=== PATIENT | male | born 1960 | race Caucasian/White ===

== ENCOUNTER 2023-04-05 12:21 | Emergency (ER) | payer OTHER, SELFPAY ==
[2023-04-05 13:26] VITALS: BP 136/81; PULSE 64; RESP 18; TEMP 36.9; O2SAT 98
--- NOTE | 2023-04-05 14:05 | ED.GENADULT ---
HPI - General Adult General Chief complaint: Wound/Laceration Stated complaint: skin tear rt arm Time Seen by Provider: 04/05/23 14:05 Source: patient Mode of arrival: ambulatory Limitations: no limitations History of Present Illness HPI narrative: 62-year-old male patient presents to the [facility] with complaints of skin tear to the right arm. Patient states that he was moving a couch last night and he got scratch to the right arm. Patient states that he cleaned the wound with soap Hobbs put antibiotic ointment on and kept it covered with a Band-Aid. Patient states he is here today specifically to get a tetanus shot as he is unaware of when his last tetanus shot was. Patient states he is prediabetic but not treated at this time. Denies any numbness or tingling to the arm. Denies any concerns for infection at this time. Related Data Allergies Allergy/AdvReac Type Severity Reaction Status Date / Time No Known Allergies Allergy Verified 04/05/23 14:03 Review of Systems Review of Systems: CONSTITUTIONAL: Denies fever, chills, or sweats. EYES: Denies visual changes, redness, or discharge. ENT: Denies rhinorrhea, congestion, sore throat, or otalgia. CARDIOVASCULAR: Denies chest pain, palpitations, or edema. RESPIRATORY: Denies cough or dyspnea. GASTROINTESTINAL: Denies abdominal pain, nausea, vomiting, or diarrhea. GENITOURINARY: Denies dysuria or hematuria. SKIN: Denies rash or itching. Positive skin tear right forearm MUSCULOSKELETAL: Denies back pain, joint pain, or myalgia. NEUROLOGIC: Denies headache, numbness, or weakness. PSYCHIATRIC: Denies anxiety or depression. [facility] Past Medical History Medical History (Updated 04/05/23 @ 14:13 by DYLAN Arceo) Pre-diabetes Comments At the time of my signature I agree with nursing past medical history, surgical, social, and family history. There is no relevant family history pertinent to the presenting complaint. Exam Narrative: GENERAL: Well-appearing, well-nourished, and in no acute distress. HEAD: Normocephalic, atraumatic. EYES: PERRLA and EOMI. ENT: Nares clear, no rhinorrhea or epistaxis. Mucous membranes moist. NECK: Supple. No lymphadenopathy CHEST: Clear to auscultation. No respiratory distress. HEART: Regular rate and rhythm. No murmur heard. Normal peripheral pulses. ABDOMEN: Soft, nontender, nondistended, normal active bowel sounds. EXTREMITIES: Normal range of motion. No edema. SKIN: Warm, dry, no rash. patient has approximate 2 cm skin tear noted. There is no skin flap at this time. There is no surrounding erythema or signs symptoms of infection at this time no warmth to the touch. NEURO: No focal deficits. Alert and oriented x3. Course Course Level of Care: Express Care Visit Vital Signs Vital signs: Vital Signs Temperature 36.9 C 04/05/23 13:26 Pulse Rate 64 04/05/23 13:26 Respiratory Rate 18 04/05/23 13:26 Blood Pressure 136/81 04/05/23 13:26 Pulse Oximetry 98 04/05/23 13:26 Oxygen Delivery Room Air 04/05/23 13:26 Temperature 36.9 C 04/05/23 13:26 Pulse Rate 64 04/05/23 13:26 Respiratory Rate 18 04/05/23 13:26 Blood Pressure 136/81 04/05/23 13:26 Pulse Oximetry 98 04/05/23 13:26 Oxygen Delivery Room Air 04/05/23 13:26 Vital signs reviewed. The patient has been informed that they may have pre-hypertension or Hypertension based on a BP reading in the department. I recommend that the patient call the primary care provider listed on their discharge instructions or a physician of their choice this week to arrange follow up for further evaluation of possible pre-hypertension or Hypertension Medical Decision Making MDM Narrative Medical decision making narrative: Discussed with patient we will go ahead and order an updated his tetanus shot today. Discussed with patient on wound care as well as signs and symptoms of infection. Patient is aware of plan of care denies any other q
[2023-04-05] MEDS: TETANUS,DIPHTHERIA,AC PERTUSSIS ADULT (0.5 ML) BOOSTRIX IM (14:16)
== END 2023-04-05 14:20 | disposition home or self-care (01) ==
PROVIDERS: Emergency Provider Nurse Practitioner Family
DX: S50.811A Abrasion of right forearm, initial encounter (principal); S51.801A Unspecified open wound of right forearm, initial encounter; X58.XXXA Exposure to other specified factors, initial encounter; Z23 Encounter for immunization; R73.03 Prediabetes
CPT/HCPCS: 90471; 90715; 99212; G0463